=== PATIENT | male | born 1960 | race Caucasian/White ===

== ENCOUNTER 2017-08-16 05:53 | Observation (INO) | payer BC ==
[2017-08-16] MEDS ORDERED: Isoproterenol 0.2 MG/1 ML AMP ONE ×3 (06:47→09:29)
[2017-08-16] MEDS ORDERED: Heparin 10,000 UNITS/1 ML VIAL ONE (06:47)
[2017-08-16] MEDS ORDERED: Lidocaine 1% (PF) 30 ML VIAL ONE (06:55)
[2017-08-16 07:14] LABS: #Basophils 0.1 thou/uL (0.0-0.2); #Eosinphils 0.4 thou/uL (0.0-0.7); #Lymphocytes 2.3 thou/uL (1.20-3.40); #Monocytes 0.6 thou/uL (0.11-0.59); #Neutrophils 2.4 thou/uL (1.40-6.50); %Basophils 1.2 % (0.0-1.0); %Eosinophils 7.5 % (0.0-10.0); %Lymphocytes 39.6 % (21.0-51.0); %Monocytes 9.6 % (0.0-10.0); %Neutrophils 42.1 % (42.0-75.0); Hemoglobin 14.7 g/dL (14.0-18.0); Mean Platelet Volume 6.6 fL (7.4-10.4); Platelet Count 216 thou/uL (130-400); RBC Distribution Width 11.9 % (11.5-14.5); Red Blood Cell (RBC) Count 4.61 mill/uL (4.70-6.10); White Blood Cell (WBC) Count 5.7 thou/uL (4.8-10.8)
[2017-08-16 07:19] LABS: PTT 25.8 SEC (22.9-36.1); Prothrombin Time 13.7 SEC (12.0-14.7)
[2017-08-16] MEDS ORDERED: Fentanyl 100 MCG/2 ML VIAL ONE ×2 (07:29→10:34)
[2017-08-16] MEDS ORDERED: Phenylephrine HCL 10 MG/ML VIAL ONE (07:30)
[2017-08-16 07:32] LABS: Anion Gap 7 mmol/L (10-20); BUN (Urea Nitrogen) 17 mg/dL (8.4-25.7); Calc. Creatinine Clearance 106 mL/min (70-130); Calcium 9.4 mg/dL (7.8-10.44); Carbon Dioxide 29 mmol/L (22-29); Chloride 107 mmol/L (98-107); Estimated GFR-MDRD 82; Glucose 96 mg/dL (70-105); Potassium 4.3 mmol/L (3.5-5.1); Sodium 139 mmol/L (136-145)
[2017-08-16] MEDS ORDERED: Propofol 500 MG/50 ML VIAL ONE ×3 (08:08→09:16)
[2017-08-16] MEDS ORDERED: Protamine Sulfate 50 MG/5 ML VIAL ONE (09:27)
[2017-08-16] MEDS ORDERED: Bisacodyl 10 MG SUPP PR PRN (10:39)
[2017-08-16] MEDS ORDERED: Nitroglycerin 0.4 MG TAB (25 Tab Bottle) SL PRN (10:39)
[2017-08-16] MEDS ORDERED: Bisacodyl 5 MG TAB PO PRN (10:39)
[2017-08-16] MEDS ORDERED: Acetaminophen 325 MG TAB PO PRN (10:39)
[2017-08-16] MEDS ORDERED: traMADol HCl 50 MG TAB PO PRN (10:39)
[2017-08-16] MEDS ORDERED: Mag-Al 1200 mg/1200 mg/30 ML UDCUP PO PRN (10:39)
[2017-08-16] MEDS ORDERED: Temazepam 15 MG CAP PO PRN (10:39)
[2017-08-16] MEDS ORDERED: Ondansetron HCl/PF 4 MG/2 ML Vial IVP PRN ×2 (10:39→10:51)
[2017-08-16] MEDS ORDERED: Silver Sulfadiazine 1% Cream 50 GM JAR TOP PRN (10:39)
[2017-08-16] MEDS ORDERED: diphenhydrAMINE 25 MG CAP PO PRN (10:39)
[2017-08-16] MEDS ORDERED: PROVENTIL INHALER 6.7 G (200 INHALATIONS) INH PRN (10:45)
[2017-08-16] MEDS ORDERED: Promethazine HCl 25 MG/ML VIAL SLOW IVP PRN (10:51)
[2017-08-16] MEDS ORDERED: Promethazine HCl 25 MG/ML VIAL IM PRN (10:51)
--- NOTE | 2017-08-16 12:51 | OP ---
DATE OF PROCEDURE: 08/16/2017 PROCEDURE: 1. Comprehensive EP testing with and without left atrial pacing and recording. 2. Mapping and ablation of atrial fibrillation. 3. Transseptal catheterization x2. 4. Intracardiac echocardiography. CLINICAL INDICATION: Drug refractory atrial fibrillation. ETHNOLOGY TEACHER: Dr. Michael Katz PRIMARY GANG SUPERVISOR PIPE LINES: Dr. Corey Garcia ASA CLASSIFICATION: 3. ANESTHESIA: Total IV anesthesia per Anesthesiology. ADDITIONAL CARDIAC MEDICATIONS: Isoproterenol 10 mcg per minute infusion. Total heparin given 16,00 0 units. Total protamine given 40 mg. ACUTE COMPLICATIONS: None apparent. TOTAL RADIOFREQUENCY TIME: 13.4 minutes. TOTAL FLUOROSCOPY TIME: Zero. METHODS: After informed consent was obtained, the patient was taken to the EP lab in fasting state. Both groins were prepped and draped. Using ultrasound guidance, the right and left femoral veins we re accessed and wires were inserted into the central venous system. The wires used to place an 11 an d 8 [place] sheath in the left groin, two 8 [place] sheaths in the right groin. All 8 [place] sheaths w ere then replaced by long sheaths for catheter stability. A 10 [place] intracardiac echo probe was pl aced in the left groin advanced to the right atrium and the right ventricle for imaging. A circular ablation catheter placed in right femoral vein and advanced to the right atrium. A 3D map was obtain ed of the right atrium and the coronary sinus. A 20 pole catheter was placed in the left groin advan oni to the coronary sinus, the proximal end was in the ness terminalis. The patient was then antic oagulated and transseptal catheterization was performed on 2 occasions. A 3D map was obtained of the left atrium and ablation was delivered reisolating the upper pulmonary veins and the posterior wall of the left atrium. No consistent non-PV triggers were seen. Catheter was then withdrawn to the rig ht atrium. Heparin was reversed and a cavotricuspid isthmus ablation line was delivered due to some runs of what appeared to be flutter. Bidirectional block was confirmed at the conclusion of the proc edure, catheter withdrawn, sheaths were pulled. Hemostasis was achieved with direct pressure. RESULTS: 1. Baseline intervals spontaneous sinus cycle length 1130 milliseconds, DE interval 172 milliseconds , QRS interval 80 milliseconds, QT interval 427 milliseconds, HV interval 59 milliseconds. 2. Atrial function. The patient was in sinus rhythm; however, some flutter was seen during pacing. The right upper and left upper pulmonary veins had regained conduction from the previous ablation an d were re-isolated along with the posterior wall of the left atrium. A cavotricuspid isthmus flutter line was also performed with a double potentials confirming block. 3. Ablation. A total of 13.4 minutes of RF were delivered with a [employer] Jain open, irrigated a blation catheter. IMPRESSION: 1. Successful re-isolation of pulmonary veins and the posterior wall of the left atrium. 2. Successful ablation of CTI flutter line with a complete block confirmed. RECOMMENDATION: 23-hour observation.
[2017-08-16 13:19] VITALS: BMI 27.1
[2017-08-16] MEDS ORDERED: Ondansetron HCl/PF 4 MG/2 ML Vial ONE (13:48)
[2017-08-16] MEDS ORDERED: PHENYLEPHRINE-NS 100 MCG/ML 10 ML SYRINGE ONE (13:48)
[2017-08-16] MEDS ORDERED: PROPOFOL 200 MG/20 ML VIAL ONE (13:48)
[2017-08-16] MEDS ORDERED: Heparin 30,000 units/30 ml VIAL ONE (13:48)
[2017-08-16] MEDS ORDERED: Gabapentin 400 MG CAP PO SCH ×2 (15:00→18:30)
[2017-08-16] MEDS: Apixaban 5 MG TAB PO SCH (20:27)
[2017-08-16] MEDS: Gabapentin 400 MG CAP PO SCH (22:25)
[2017-08-17] MEDS: Gabapentin 400 MG CAP PO SCH (07:04)
[2017-08-17] MEDS: Apixaban 5 MG TAB PO SCH (08:11)
[2017-08-17 08:29] VITALS: BP 108/62; TEMP 98.6
--- NOTE | 2017-08-17 11:52 | DIS ---
DATE OF ADMISSION: 08/16/2017 DATE OF PROCEDURE: 08/16/2017 PROCEDURE PERFORMED: 1. Comprehensive EP testing with and without left atrial pacing and recording. 2. Mapping ablation of atrial fibrillation. 3. Transseptal catheterization x2. 4. Intracardiac echocardiography. DIAGNOSIS: Drug refractory atrial fibrillation. COSTUME CUTTER: Dr. Corey Garcia . ACUTE COMPLICATIONS: None apparent. TOTAL RF TIME: 13.4 minutes. HISTORY OF PRESENT ILLNESS: Mr. Monreal was scheduled for an elective redo left atrial ablation with Dr. Katz which was performed yesterday on 08/16/2017. This is for drug refractory recurrent atrial fibrillation despite continue flecainide use. He has been anticoagulated with Eliquis 5 mg b.i.d. He underwent successful re-isolation of the pulmonary veins as well as the posterior wall of left atr ium. He also underwent successful ablation of the CTI flutter line with a complete block confirmed. He was observed overnight without complication. He has been up ambulating in the montes, tolerating f ood and voiding well without complication. He did not have a Richards catheter during his procedure. H e is maintaining sinus rhythm over the night with rates in the 50-60 range. He is feeling well. He has no heart racing, palpitations, chest pain or pressure. His vital signs have been stable. Most r ecent vital signs are temperature 98.6, heart rate 57, respirations 16, oxygen saturation 93%, blood pressure 108/62. DISCHARGE MEDICATIONS: The patient is to continue with home medications of albuterol sulfate 2 puffs q.i.d. as needed, apixaban 5 mg p.o. b.i.d., gabapentin 600 mg 2 tabs p.o. t.i.d. Discontinue fleca inide 100 mg p.o. b.i.d. He will have Carafate 1 gram q.i.d. for 2 weeks as well as Protonix 40 mg t ablet daily for a month. He was provided with a prescription for 20 mg of Lasix and 10 mEq of potass ium to take as needed for symptoms of shortness of breath and fluid retention. DISCHARGE INSTRUCTIONS: No soaking baths for 1 week. He is to follow a heart healthy diet. No lift ing more than 15 pounds for 5 days. He will follow up in clinic in 4-6 weeks for routine followup wi th TCA. The patient has an event monitor provided to him in the post-ablation setting. He is stable for discharge today.
--- NOTE | 2017-08-29 22:45 | EKG ---
Test Reason : PREOP Blood Pressure : / mmHG Vent. Rate : 054 BPM Atrial Rate : 054 BPM P-R Int : 172 ms QRS Dur : 108 ms QT Int : 446 ms P-R-T Axes : 017 037 020 degrees QTc Int : 422 ms Sinus bradycardia Otherwise normal ECG When compared with ECG of 07-JAN-2014 09:00, Criteria for Septal infarct are no longer Present Confirmed by Ann PIZANO ([id number]) on 08/29/2017 10:44:46 PM Referred By: ANTOLIN Confirmed By:Ann PIZANO
--- NOTE | 2017-08-29 22:49 | EKG ---
Test Reason : POST EP STUDY/ABLATI Blood Pressure : / mmHG Vent. Rate : 050 BPM Atrial Rate : 050 BPM P-R Int : 168 ms QRS Dur : 112 ms QT Int : 466 ms P-R-T Axes : 014 050 035 degrees QTc Int : 424 ms Sinus bradycardia Otherwise normal ECG When compared with ECG of 16-AUG-2017 06:58, (Unconfirmed) No significant change was found Confirmed by Ann PIZANO ([id number]) on 08/29/2017 10:48:48 PM Referred By: ANTOLIN Confirmed By:Ann PIZANO
--- NOTE | 2017-08-29 22:58 | EKG ---
Test Reason : Blood Pressure : / mmHG Vent. Rate : 058 BPM Atrial Rate : 058 BPM P-R Int : 164 ms QRS Dur : 104 ms QT Int : 426 ms P-R-T Axes : 030 031 036 degrees QTc Int : 418 ms Sinus bradycardia Otherwise normal ECG When compared with ECG of 16-AUG-2017 10:22, (Unconfirmed) No significant change was found Confirmed by Ann PIZANO ([id number]) on 08/29/2017 10:58:09 PM Referred By: ANTOLIN Confirmed By:Ann PIZANO
== END 2017-08-17 11:34 | disposition home or self-care (01) ==
LOC: CCL 05:53 → 2SW 12:47
PROVIDERS: ADMIT Internal Medicine Cardiovascular Disease; ATTEND Internal Medicine Cardiovascular Disease
PROC: 02583ZZ Destruction of Conduction Mechanism, Percutaneous Approach (ICD-10-PCS; principal; 2017-08-17)
DX: I48.0 Paroxysmal atrial fibrillation (principal); Z79.01 Long term (current) use of anticoagulants; Z79.899 Other long term (current) drug therapy
CPT/HCPCS: 36415; 76942; 80048; 85025; 85347; 85610; 85730; 93005; 93010; 93613; 93623; 93655; 93656; 93662; 94640; 96374; A4216; C1731; C1732; C1759; C1769; G0378; J1644; J2001; J2370; J2405; J2704; J2720; J3010; J7620

== ENCOUNTER 2017-12-17 08:33 | Outpatient (CLI) | payer BC ==
[2017-12-17 09:30] LABS: #Basophils 0.1 thou/uL (0.0-0.2); #Eosinphils 0.8 thou/uL (0.0-0.7); #Lymphocytes 2.2 thou/uL (1.20-3.40); #Monocytes 0.5 thou/uL (0.11-0.59); %Basophils 0.8 % (0.0-1.0); %Eosinophils 12.5 % (0.0-10.0); %Lymphocytes 33.4 % (21.0-51.0); %Monocytes 7.4 % (0.0-10.0); %Neutrophils 45.9 % (42.0-75.0); Hemoglobin 14.8 g/dL (14.0-18.0); Mean Corpuscular HGB CONC 34.1 g/dL (32.0-36.0); Mean Platelet Volume 6.7 fL (7.4-10.4); Platelet Count 219 thou/uL (130-400); RBC Distribution Width 11.9 % (11.5-14.5); Red Blood Cell (RBC) Count 4.61 mill/uL (4.70-6.10); White Blood Cell (WBC) Count 6.4 thou/uL (4.8-10.8)
== END 2017-12-17 08:34 | disposition home or self-care (01) ==
LOC: LABBT 08:33
PROVIDERS: ATTEND Orthopaedic Surgery Hand Surgery
DX: Z01.812 Encounter for preprocedural laboratory examination (principal); M65.341 Trigger finger, right ring finger
CPT/HCPCS: 85025

== ENCOUNTER 2019-07-17 08:32 | Outpatient (CLI) | payer BC ==
[~2019-07-17 08:32] MED LIST: EPINEPHrine 1 MG/ML AMP ONE; Gadobenate Dimeglumine 529 MG/1 ML (20ML VIAL) ONE; Iopamidol 300 61% 50 ML VIAL FS ONE; Lidocaine 1% PF 10 ML AMP ONE
--- NOTE | 2019-07-17 11:02 | RAD ---
EXAM: Right shoulder arthrogram PROVIDED CLINICAL HISTORY: Right shoulder pain COMPARISON: None FINDINGS: Informed consent was obtained from the patient. Patient was placed on the fluoroscopy table in the [place] position and the area overlying the rotator interval was identified fluoroscopically and the soft tissues overlying this region were prepped and draped in the usual sterile manner. The soft tiss ues were anesthetized with buffered lidocaine. Under intermittent fluoroscopic guidance a 22-gauge spinal needle was advanced into the right glenohumeral joint with administration of 15 cc of gadolin ium based contrast containing solution (initially containing 2 cc of MultiHance). The needle was withdrawn and hemostasis achieved. No immediate complications. The postarthrographic images demonstra te evidence for full-thickness rotator cuff tear. The baker bread radiographs demonstrate no evidence for an acute osseous abnormality or significant arthropathy, with post rotator cuff repair changes no hadley. IMPRESSION: Technically successful fluoroscopically guided right shoulder arthrogram for MRI to follow. Please s ee that report.
--- NOTE | 2019-07-17 12:03 | MRI ---
EXAM: MR arthrogram right shoulder PROVIDED CLINICAL HISTORY: Pain COMPARISON: 12/26/2013 FINDINGS: Interval repair of previously described subscapularis tendon tear. Interval long head biceps tenodesi s. The remaining supraspinatus tendon fibers are thin, similar to prior. The infraspinatus appears unremarkable. High-grade partial-thickness undersurface tearing involving the cranial fibers of the s ubscapularis. Teres minor appears intact. There is conspicuous subacromial subdeltoid bursal fluid, likely on the basis of rotator interval def ect. No gross full thickness re-tear of the supraspinatus tendon is evident. The glenoid labrum demonstrates no evidence for tear. No focal concerning regional marrow or muscular signal abnormality. Acromioclavicular joint osteoarth rosis is noted. IMPRESSION: 1. High-grade partial-thickness undersurface tearing involving the cranial fibers of the subscapulari s. 2. Conspicuous subacromial subdeltoid bursal fluid, likely on the basis of rotator interval defect. T he remaining supraspinatus tendon fibers appear thin but demonstrate no definite evidence for full-thickness tear.
[2019-07-17] MEDS ORDERED: Magnevist 469MG/ML 20 ML VIAL ONE (13:51)
== END 2019-07-17 08:33 | disposition home or self-care (01) ==
LOC: RAD 08:32
PROVIDERS: ATTEND Orthopaedic Surgery
DX: M25.511 Pain in right shoulder (principal); S46.811A Strain of other muscles, fascia and tendons at shoulder and upper arm level, right arm, initial encounter
CPT/HCPCS: 23350; A9577; A9579; J0171; J2001; Q9967

== ENCOUNTER 2022-08-23 09:15 | Outpatient (CLI) | payer OTHER | END 2022-08-23 09:16 | disposition home or self-care (01) | LOC: LABBT 09:15 | PROVIDERS: ATTEND Orthopaedic Surgery | DX: Z01.818 Encounter for other preprocedural examination (principal); M17.11 Unilateral primary osteoarthritis, right knee | CPT/HCPCS: 71046 ==

== ENCOUNTER 2022-08-28 05:07 | Observation (INO) | payer OTHER ==
[2022-08-23 10:17] LABS: Bilirubin Neg (Negative); Blood, Urine Negative (Negative); Glucose, Urine (Dipstick) Normal (Negative); Ketone, Urine Negative (Negative); Leukocyte Negative (Negative); Nitrite Negative (Negative); Protein, Urine (Dipstick) Negative (Neg-Trace); Urobilinogen Normal mg/dL (Less than 2)
[2022-08-23 10:21] LABS: #Eosinphils 0.3 10x3/uL (0.0-0.5); #Monocytes 0.5 10x3/uL (0.0-1.1); #Neutrophils 2.5 10x3/uL (1.5-8.4); %Basophils 0.8 % (0.0-2.0); %Eosinophils 5.9 % (0.0-6.0); %Lymphocytes 36.1 % (18.0-47.0); %Monocytes 8.9 % (0.0-10.0); %Neutrophils 48.1 % (40.0-75.0); Hemoglobin 15.5 g/dL (13.5-17.5); Mean Corpuscular HGB CONC 33.1 g/dL (32.0-36.0); Mean Corpuscular Hemoglobin 31.5 pg (27.0-33.0); Mean Corpuscular Volume 95.1 fl (81.2-95.1); Mean Platelet Volume 9.4 fl (7.4-10.4); Platelet Count 255 10x3/uL (150-450); RBC Distribution Width 12.6 % (11.5-14.5); Red Blood Cell (RBC) Count 4.92 10x6/uL (4.32-5.72); White Blood Cell (WBC) Count 5.3 10x3/uL (3.5-10.5)
[2022-08-23 10:22] LABS: Clarity Clear (Clear)
[2022-08-23 10:59] LABS: Prothrombin Time 10.7 sec (9.5-12.1)
[2022-08-23 11:00] LABS: Anion Gap 14 mmol/L (10-20); BUN (Urea Nitrogen) 15 mg/dL (8.4-25.7); Calc. Creatinine Clearance 0 mL/min (70-130); Calcium 9.5 mg/dL (7.8-10.44); Carbon Dioxide 27 mmol/L (23-31); Chloride 104 mmol/L (98-107); Estimated GFR 84; Glucose 87 mg/dL (80-115); Potassium 4.7 mmol/L (3.5-5.1); Sodium 140 mmol/L (136-145)
[2022-08-24 10:11] VITALS: BMI 25.1
[2022-08-28] MEDS ORDERED: Tranexamic Acid 1,000 MG/10 ML VIAL ONE ×2 (06:13→09:49)
[2022-08-28] MEDS ORDERED: Fentanyl 250 MCG/5 ML VIAL ONE (06:13)
[2022-08-28] MEDS ORDERED: Midazolam HCl 2 mg/2 ml Vial ONE (06:13)
[2022-08-28] MEDS ORDERED: Sodium Chloride 0.9% 100 ML ONE ×2 (06:13→06:58)
[2022-08-28] MEDS ORDERED: Vancomycin (BATCH) 1.5 GRAM/300 ML BAG ONE (06:13)
[2022-08-28] MEDS ORDERED: Dexamethasone 20 MG/5 ML VIAL ONE (06:15)
[2022-08-28] MEDS ORDERED: Ondansetron PF 4 MG/2 ML Vial ONE (06:15)
[2022-08-28] MEDS ORDERED: Bupivacaine HCl 0.5%/Epinephrine 1:200,000/PF 30 ml Vial ONE (06:15)
[2022-08-28] MEDS ORDERED: GLYCOPYRROLATE/PF 0.2 MG/ML VIAL ONE (06:15)
[2022-08-28] MEDS ORDERED: ePHEDrine Sulfate 50 MG/10 ML VIAL ONE (06:15)
[2022-08-28] MEDS ORDERED: Ketorolac Tromethamine 30 MG/ML VIAL ONE (06:15)
[2022-08-28] MEDS ORDERED: Lidocaine 1% PF 5 ML VIAL ONE (06:15)
[2022-08-28] MEDS ORDERED: PROPOFOL 200 MG/20 ML VIAL ONE (06:15)
[2022-08-28] MEDS ORDERED: Sevoflurane 250 ML INH ANEST BOTTLE ONE (06:23)
[2022-08-28] MEDS ORDERED: Bupivacaine 0.25% HCL 30 ML VIAL ONE (06:48)
[2022-08-28] MEDS ORDERED: CEFAZOLIN 2 GM VIAL ONE (06:58)
[2022-08-28] MEDS ORDERED: Tranexamic Acid 1,000 MG in Sodium Chloride 0.9% 100 ML IVPB SCH (07:30)
[2022-08-28] MEDS ORDERED: Promethazine HCl 25 MG/ML VIAL IM PRN ×3 (07:31→08:16)
[2022-08-28] MEDS ORDERED: diphenhydrAMINE 25 MG CAP PO PRN (07:31)
[2022-08-28] MEDS ORDERED: traMADol HCl 50 MG TAB PO PRN ×3 (07:31→07:45)
[2022-08-28] MEDS ORDERED: HYDROcodone/Acetaminophen 10/325 mg Tablet PO PRN ×4 (07:31→07:45)
[2022-08-28] MEDS ORDERED: Zolpidem Tartrate 5 MG TAB PO PRN ×2 (07:31→07:45)
[2022-08-28] MEDS ORDERED: Ondansetron PF 4 MG/2 ML Vial IVP PRN ×2 (07:31→07:45)
[2022-08-28] MEDS ORDERED: Acetaminophen 325 MG TAB PO PRN (07:31)
[2022-08-28] MEDS ORDERED: Albuterol 200 PUFF (6.7GM INHALER) INH PRN (07:33)
[2022-08-28] MEDS ORDERED: Loratadine 10 MG TAB PO PRN (07:38)
[2022-08-28] MEDS ORDERED: fentaNYL 50 mcg/mL 1 mL Vial SLOW IVP PRN ×2 (07:42→07:44)
[2022-08-28] MEDS ORDERED: Ropivacaine 0.2% 550 ML 550 ML NERVE BLCK SCH (07:45)
[2022-08-28] MEDS ORDERED: Bupivacaine PF 0.5% 30 ML VIAL ONE (08:03)
[2022-08-28] MEDS ORDERED: HYDROmorphone 2 MG/ML VIAL SLOW IVP PRN (08:16)
[2022-08-28] MEDS ORDERED: Ondansetron HCl/PF 4 MG/2 ML Vial IVP PRN (08:16)
[2022-08-28] MEDS ORDERED: HYDROmorphone 0.5 MG/0.5 ML SYRINGE ONE ×2 (09:43→10:02)
[2022-08-28] MEDS ORDERED: fentaNYL 50 mcg/mL 1 mL Vial ONE ×4 (09:43→10:26)
[2022-08-28] MEDS: Senokot S 8.6-50 MG TAB PO SCH ×2 (11:47→20:56)
[2022-08-28] MEDS: Multivitamin W/ Minerals 1 TAB PO SCH (11:47)
[2022-08-28] MEDS: Aspirin 81 mg Enteric Coated Tablet PO SCH ×2 (11:47→20:55)
[2022-08-28] MEDS: Ferrous Gluconate 324 MG TAB PO SCH ×2 (11:47→20:55)
[2022-08-28] MEDS ORDERED: Ketorolac Tromethamine 30 MG/ML VIAL IVP SCH ×2 (12:00→14:00)
[2022-08-28] MEDS: CEFAZOLIN 2 GM in Sodium Chloride 0.9% 100 ML IVPB SCH ×2 (14:43→23:53)
[2022-08-28] MEDS: Sodium Chloride 0.9% 1,000 ML IV SCH ×2 (14:43→18:43)
[2022-08-28] MEDS: Ketorolac Tromethamine 30 MG/ML VIAL IVP SCH ×2 (14:44→20:55)
[2022-08-28] MEDS ORDERED: Vancomycin HCl 1.5 GM in Sodium Chloride 0.9% 250 ML 300 ML IVPB SCH (18:00)
[2022-08-29] MEDS: Ketorolac Tromethamine 30 MG/ML VIAL IVP SCH ×2 (04:45→08:57)
[2022-08-29] MEDS: Sodium Chloride 0.9% 1,000 ML IV SCH (04:46)
[2022-08-29 06:24] LABS: Mean Corpuscular HGB CONC 33.1 g/dL (32.0-36.0); Mean Corpuscular Hemoglobin 32.5 pg (27.0-31.0); Mean Corpuscular Volume 98.2 fl (78.0-98.0); Mean Platelet Volume 7.5 fL (7.4-10.4); Platelet Count 195 10x3/uL (130-400); RBC Distribution Width 11.6 % (11.5-14.5); White Blood Cell (WBC) Count 12.7 10x3/uL (4.8-10.8)
[2022-08-29] MEDS: Aspirin 81 mg Enteric Coated Tablet PO SCH (08:56)
[2022-08-29] MEDS: Ferrous Gluconate 324 MG TAB PO SCH (08:56)
[2022-08-29] MEDS: Multivitamin W/ Minerals 1 TAB PO SCH (08:56)
[2022-08-29] MEDS: Senokot S 8.6-50 MG TAB PO SCH (08:57)
[2022-08-29 12:26] VITALS: BP 139/75; TEMP 97.9
== END 2022-08-29 11:55 | disposition home or self-care (01) ==
LOC: SDC 05:07 → SURG B 10:54
PROVIDERS: ADMIT Orthopaedic Surgery; ATTEND Orthopaedic Surgery
PROC: 0SRC0J9 Replacement of Right Knee Joint with Synthetic Substitute, Cemented, Open Approach (ICD-10-PCS; principal; 2022-08-28)
DX: M17.11 Unilateral primary osteoarthritis, right knee (principal); J45.909 Unspecified asthma, uncomplicated; I48.91 Unspecified atrial fibrillation; Z88.8 Allergy status to other drugs, medicaments and biological substances; Z98.890 Other specified postprocedural states
CPT/HCPCS: 36415; 80048; 81003; 85025; 85027; 85610; 86850; 86900; 86901; 87081; A4306; C1713; C1776; J1100; J1170; J1885; J2250; J2405; J2704; J2795; J3010; J3370; J3490; J7050; S0020

== ENCOUNTER 2022-09-29 07:59 | Outpatient (CLI) | payer OTHER | END 2022-09-29 08:00 | disposition home or self-care (01) | LOC: NM 07:59 | PROVIDERS: ATTEND Internal Medicine | DX: Z13.810 Encounter for screening for upper gastrointestinal disorder (principal); R68.81 Early satiety; R11.0 Nausea | CPT/HCPCS: 78264; A9541 ==

== ENCOUNTER 2023-08-03 15:18 | Outpatient (CLI) | payer OTHER | END 2023-08-03 15:19 | disposition home or self-care (01) | LOC: BICMRI 15:18 | PROVIDERS: ATTEND Orthopaedic Surgery | DX: S49.91XA Unspecified injury of right shoulder and upper arm, initial encounter (principal); M75.121 Complete rotator cuff tear or rupture of right shoulder, not specified as traumatic; M19.011 Primary osteoarthritis, right shoulder ==

== ENCOUNTER 2023-08-15 07:15 | Day surgery (SDC) | payer OTHER ==
[2023-08-13 16:52] VITALS: BMI 24.1
[2023-08-15] MEDS ORDERED: Midazolam HCl 2 mg/2 ml Vial ONE (08:07)
[2023-08-15] MEDS ORDERED: fentaNYL 50 mcg/mL 1 mL Vial ONE ×3 (08:07→12:47)
[2023-08-15] MEDS ORDERED: Vancomycin (BATCH) 1.5 GM/300 ML BAG ONE (09:10)
[2023-08-15] MEDS ORDERED: Ketorolac Tromethamine 30 MG (1 mL) VIAL IVP PRN (09:15)
[2023-08-15] MEDS ORDERED: traMADol HCl 50 MG TAB PO PRN ×2 (09:15)
[2023-08-15] MEDS ORDERED: Ondansetron PF 4 MG/2 ML Vial IVP PRN (09:15)
[2023-08-15] MEDS ORDERED: Promethazine HCl 25 MG/ML VIAL IM PRN (09:15)
[2023-08-15] MEDS ORDERED: Ropivacaine 0.2% 550 ML 550 ML NERVE BLCK SCH (09:15)
[2023-08-15] MEDS ORDERED: HYDROcodone/Acetaminophen 10/325 mg Tablet PO PRN ×2 (09:15)
[2023-08-15] MEDS ORDERED: Zolpidem Tartrate 5 MG TAB PO PRN (09:15)
[2023-08-15] MEDS ORDERED: Sodium Chloride 0.9% 100 ML ONE (10:17)
[2023-08-15] MEDS ORDERED: CEFAZOLIN 2 GM VIAL ONE (10:17)
[2023-08-15] MEDS ORDERED: Ketorolac Tromethamine 30 MG (1 mL) VIAL ONE (10:40)
[2023-08-15] MEDS ORDERED: Bupivacaine PF 0.5% 30 ML VIAL ONE (10:40)
[2023-08-15] MEDS ORDERED: Rocuronium Bromide 10 MG/ML (10ML VIAL) ONE (10:40)
[2023-08-15] MEDS ORDERED: Dexamethasone 20 MG/5 ML VIAL ONE (10:40)
[2023-08-15] MEDS ORDERED: PROPOFOL 200 MG/20 ML VIAL ONE (10:40)
[2023-08-15] MEDS ORDERED: Ondansetron PF 4 MG/2 ML Vial ONE (10:40)
[2023-08-15] MEDS ORDERED: methylPREDNISolone Acetate 40 mg/ml Vial ONE (10:44)
[2023-08-15] MEDS ORDERED: Lidocaine 1% (PF) 30 ML VIAL ONE (10:45)
[2023-08-15] MEDS ORDERED: ePHEDrine Sulfate 50 MG/10 ML VIAL ONE (13:27)
== END 2023-08-15 14:33 | disposition home or self-care (01) ==
LOC: SDC 07:15
PROVIDERS: ATTEND Orthopaedic Surgery
PROC: 0LM10ZZ Reattachment of Right Shoulder Tendon, Open Approach (ICD-10-PCS; principal; 2023-08-15)
PROC: 0RNJ0ZZ Release Right Shoulder Joint, Open Approach (ICD-10-PCS; principal; 2023-08-15)
DX: S46.011A Strain of muscle(s) and tendon(s) of the rotator cuff of right shoulder, initial encounter (principal); I48.91 Unspecified atrial fibrillation; J45.909 Unspecified asthma, uncomplicated; B02.21 Postherpetic geniculate ganglionitis; L23.7 Allergic contact dermatitis due to plants, except food; Z79.51 Long term (current) use of inhaled steroids; W19.XXXA Unspecified fall, initial encounter; Z79.899 Other long term (current) drug therapy
CPT/HCPCS: A4306; A6223; C1713; C1894; J0665; J1030; J1100; J1885; J2001; J2250; J2405; J2704; J2795; J3010; J3370; J3490

== ENCOUNTER 2024-05-23 13:55 | Outpatient (CLI) | payer OTHER | END 2024-05-23 13:56 | disposition home or self-care (01) | LOC: BICMRI 13:55 | PROVIDERS: ATTEND Family Medicine | DX: M54.12 Radiculopathy, cervical region (principal); M48.02 Spinal stenosis, cervical region | CPT/HCPCS: 72141 ==

== ENCOUNTER 2024-06-20 08:30 | Outpatient (CLI) | payer OTHER ==
[2024-06-20 09:33] LABS: #Basophils 0.03 10x3/uL (0.0-0.2); %Basophils 0.5 % (0.0-1.0); %Eosinophils 5.8 % (0.0-10.0); %Lymphocytes 35.8 % (21.0-51.0); %Neutrophils 48.7 % (42.0-75.0); Hematocrit 45.2 % (42.0-52.0); Hemoglobin 15.3 g/dL (14.0-18.0); Mean Corpuscular HGB CONC 33.8 g/dL (32.0-36.0); Mean Corpuscular Hemoglobin 31.5 pg (27.0-31.0); Mean Corpuscular Volume 93.2 fL (78.0-98.0); Mean Platelet Volume 9.1 fL (7.4-10.4); Platelet Count 235 10x3/uL (130-400); RBC Distribution Width 12.3 % (11.5-14.5); Red Blood Cell (RBC) Count 4.85 mill/uL (4.70-6.10)
[2024-06-20 09:51] LABS: Anion Gap 12 mmol/L (10-20); BUN (Urea Nitrogen) 13 mg/dL (8.4-25.7); Calc. Creatinine Clearance 0 mL/min (70-130); Calcium 9.6 mg/dL (7.8-10.44); Carbon Dioxide 27 mmol/L (23-31); Chloride 104 mmol/L (98-107); Estimated GFR 90; Glucose 97 mg/dL (80-115); Potassium 4.3 mmol/L (3.5-5.1); Sodium 139 mmol/L (136-145)
== END 2024-06-20 08:31 | disposition home or self-care (01) ==
LOC: LABBT 08:30
PROVIDERS: ATTEND Neurological Surgery
DX: Z01.812 Encounter for preprocedural laboratory examination (principal); M54.12 Radiculopathy, cervical region
CPT/HCPCS: 80048; 85025